=== PATIENT | female | born 1945 | race African-American/Black ===

== ENCOUNTER → 2017-01-31 | Outpatient (CLI) | payer MEDICARE, BC ==
--- NOTE | ~2017-01-31 | BD1 ---
[facility] A Service of [facility] & [facility] RADIOLOGY TEXT RESULTS PATIENT: CARLY COBOS LOCATION: [facility] : 43 UNIT #: [id number] AGE: [address]: KASSY NAIK MD SEX: F ORDER DR: [id number] [facility] [address] [place], [place] [address] [id number] O MR#: [id number] Acc #: [id number] NAME: CARLY COBOS : 1945 SEX: F STUDY DATE/TIME: 01/31/2017 11:11 UNIT: [facility] ROOM: STUDY DESCRIPTION: BD Dexa Bone Dens 1+ Site Attending Physician: Kassy Naik M.D. Ordering Physician: Kassy Naik M.D. Primary Care Physician: Kassy Naik M.D. MEDICAL IMAGING REPORT This report is preliminary unless electronic signature is present EXAM DXA scan 01/31/2017 HISTORY Status post menopause with no hormone replacement therapy. Osteopenia. FINDINGS Bone mineral density in the lumbar spine from L1-L4 was 0.833 g/cm2 which is 1.9 standard deviations below the mean when compared to the young adult reference population which is characteristic of osteopenia. This is 0.3 standard deviations above the mean when compared to the age-matched population. Bone mineral density in the left femoral neck was 0.725 g/cm2 which is 1.1 standard deviations below the mean when compared to the young adult reference population which is characteristic of osteopenia. This is 0.8 standard deviations above the mean when compared to the age-matched population. IMPRESSION Bone mineral density in the lumbar spine and left hip characteristic of osteopenia. Dictated by... Jono Mckeon M.D. THIS IS AN ELECTRONICALLY VERIFIED REPORT Jono Mckeon M.D. at 02/01/2017 7:34 AM GONZALEZ/melinda TD: 01/31/2017 13:16 JOB #: [id number] MEDICAL IMAGING REPORT COPY
== END | disposition home or self-care (01) ==
LOC: CWCC 10:52
DX: Z13.820 Encounter for screening for osteoporosis (principal); M85.89 Other specified disorders of bone density and structure, multiple sites; Z78.0 Asymptomatic menopausal state
CPT/HCPCS: 77080